=== PATIENT | female | born 1955 | race Caucasian/White ===

== ENCOUNTER 2017-11-17 12:26 | Outpatient (CLI) | payer OTHER | END 2017-11-17 12:27 | disposition short-term general hospital (02) | LOC: EMS 12:26 | PROVIDERS: ATTEND Surgery | DX: R42 Dizziness and giddiness (principal); R11.0 Nausea | CPT/HCPCS: A0425; A0429 ==

== ENCOUNTER 2019-12-06 23:42 | Outpatient (CLI) | payer OTHER | END 2019-12-06 23:43 | disposition short-term general hospital (02) | LOC: EMS 23:42 | PROVIDERS: ATTEND Surgery | DX: M54.9 Dorsalgia, unspecified (principal); M25.511 Pain in right shoulder; R50.9 Fever, unspecified | CPT/HCPCS: A0425; A0433 ==